=== PATIENT | male | born 1960 | race Caucasian/White ===

== ENCOUNTER 2017-01-10 13:12 | Emergency (ER) | payer OTHER ==
[2017-01-10 13:27] VITALS: BP 146/94
[2017-01-10] MEDS ORDERED: Bacitracin Oint 1 GM U/D Packet TOP ONE (13:36)
[2017-01-10] MEDS ORDERED: Lidocaine 1% 20 ML MDV INJECT ONE (13:36)
[2017-01-10] MEDS ORDERED: Diphtheria,Pertussis(Acell),Tetanus Vaccine 0.5 ML SDV IM ONE (13:43)
--- NOTE | 2017-01-10 14:34 | EDM.PDOC ---
ED HPI GENERAL MEDICAL PROBLEM - General Chief Complaint: Laceration Stated Complaint: CUT BACK LT THIGH Time Seen by Provider: 01/10/17 13:30 Source of Information: Reports: Patient History Limitations: Reports: No Limitations - History of Present Illness INITIAL COMMENTS - FREE TEXT/NARRATIVE: 56-year-old male sustained a large laceration on the back of his left leg when he slipped off of a broken step of a ladder and got injured on the back of his left leg. Onset: Sudden Severity: Moderate Associated Symptoms: Reports: Other (A few superficial abrasions on his arms) Left Incisional Pain Score (Numeric/FACES): 3 - Related Data Allergies Allergy/AdvReac Type Severity Reaction Status Date / Time No Known Allergies Allergy Verified 01/10/17 13:31 Home Meds: Home Meds NK [No Known Home Meds] 01/10/17 [History] Past Medical History Cardiovascular History: Reports: Hypertension - Past Surgical History Male Surgical History: Reports: Vasectomy Social & Family History - Tobacco Use Smoking Status *Q: Never Smoker - Alcohol Use Days Per Week of Alcohol Use: 4 Number of Drinks Per Day: 1 Total Drinks Per Week: 4 - Recreational Drug Use Recreational Drug Use: No ED ROS GENERAL - Review of Systems Review Of Systems: See Below Constitutional: Denies: Fever Respiratory: Denies: Shortness of Breath, Cough Cardiovascular: Denies: Chest Pain GI/Abdominal: Denies: Abdominal Pain, Nausea, Vomiting Neurological: Denies: Headache ED EXAM, SKIN/RASH Exam: See Below Exam Limited By: No Limitations General Appearance: Alert, No Apparent Distress Respiratory/Chest: No Respiratory Distress Extremities: Other (On the posterior left thigh the patient has a V-shaped fairly deep laceration to the subcutaneous tissue with a total length of 10 cm. No significant deep structures are involved.) Course - Vital Signs Last Recorded V/S: Last Vital Signs Temp 95.2 F L 01/10/17 13:29 Pulse 76 01/10/17 13:29 Resp 16 01/10/17 13:29 BP 146/94 H 01/10/17 13:29 Pulse Ox 97 01/10/17 13:29 - Orders/Labs/Meds Orders: Active Orders 24 hr Category Date Time Status Vaccines to be Administered [RC] PER UNIT ROUTINE Care 01/10/17 13:43 Active Meds: Medications Discontinued Medications Generic Name Dose Route Start Last Admin Trade Name Jan PRN Reason Stop Dose Admin Bacitracin 1 dose 01/10/17 13:36 01/10/17 13:46 Bacitracin Oint 1 Gm TOP 01/10/17 13:37 1 dose ONETIME ONE Administration Diphtheria/Tetanus/Acell Pertussis 0.5 ml 01/10/17 13:43 01/10/17 13:46 Adacel IM 01/10/17 13:44 0.5 ml .ONCE ONE Administration Lidocaine HCl 20 ml 01/10/17 13:36 01/10/17 13:46 Xylocaine 1% INJECT 01/10/17 13:37 20 ml ONETIME ONE Administration - Re-Assessments/Exams Free Text/Narrative Re-Assessment/Exam: 01/10/17 14:31 The laceration was anesthetized with 15 mL of 1% lidocaine, washed thoroughly with saline and 5 Vicryl sutures were used to close the subcutaneous tissue. 16 4-0 Ethilon sutures were then used to close the laceration externally. Topical bacitracin and bandages were applied, the wound is to be kept covered and clean and sutures can be removed in 10 days[address] I'm going to place him on cephalexin 500 3 times daily because of the large nature and depth of the laceration. Departure - Departure Time of Disposition: 14:51 Disposition: Home, Self-Care 01 Clinical Impression: Laceration of leg - Discharge Information Instructions: Laceration Care, Adult Referrals: PCP,None [Primary Care Provider] - Forms: ED Department Discharge Care Plan Goals: Keep wound covered and clean while healing. Take antibiotic 3 times a day until gone, and stitches can be removed in 10 days, next Thursday. Recheck sooner if concerns of infection or not healing satisfactorily. Ibuprofen or naproxen will help pain. - My Orders Last 24 Hours: My Active Orders 01/10/17 13:43 Vaccines to be Administered [RC] PER UNIT ROUTINE - Assessment/Plan Last 24 Hours: My Active Orders 01/10/17 13:43 Vaccines to be Administered [RC] PER UNIT ROUTINE
== END 2017-01-10 14:51 | disposition home or self-care (01) ==
LOC: JP.ED 13:12
DX: S71.112A Laceration without foreign body, left thigh, initial encounter (principal); I10 Essential (primary) hypertension; Z23 Encounter for immunization; W26.8XXA Contact with other sharp object(s), not elsewhere classified, initial encounter
CPT/HCPCS: 12034; 90471; 90715; 99283-25